=== PATIENT | male | born 1985 | race African-American/Black ===

== ENCOUNTER 2024-04-05 19:10 | Emergency (ER) | payer OTHER ==
[2024-04-05] MEDS ORDERED: diphenhydrAMINE 50 MG/ML VIAL ONE (19:31)
[2024-04-05] MEDS ORDERED: Metoclopramide HCl 10 MG (2 mL) VIAL ONE (19:32)
[2024-04-05 20:02] LABS: #Eosinphils 0.1 thou/uL (0.0-0.7); #Lymphocytes 1.1 thou/uL (1.20-3.40); #Monocytes 0.5 thou/uL (0.11-0.59); #Neutrophils 5.2 thou/uL (1.40-6.50); %Basophils 0.7 % (0.0-1.0); %Eosinophils 1.1 % (0.0-10.0); %Lymphocytes 15.5 % (21.0-51.0); %Monocytes 6.9 % (0.0-10.0); %Neutrophils 75.9 % (42.0-75.0); Hematocrit 38.7 % (42.0-52.0); Hemoglobin 12.7 g/dL (14.0-18.0); Mean Corpuscular HGB CONC 32.7 g/dL (32.0-36.0); Mean Corpuscular Hemoglobin 29.5 pg (27.0-31.0); Mean Corpuscular Volume 90.2 fl (78.0-98.0); Mean Platelet Volume 11.4 fL (7.4-10.4); Platelet Count 161 10x3/uL (130-400); RBC Distribution Width 12.7 % (11.5-14.5); Red Blood Cell (RBC) Count 4.29 mill/uL (4.70-6.10); White Blood Cell (WBC) Count 6.9 10x3/uL (4.8-10.8)
[2024-04-05 20:18] LABS: ALT (SGPT) 34 U/L (8-55); AST (SGOT) 21 U/L (5-34); Alkaline Phosphatase 40 U/L (40-110); Anion Gap 12 mmol/L (10-20); BUN (Urea Nitrogen) 14 mg/dL (8.9-20.6); Calc. Creatinine Clearance 0 mL/min (70-130); Calcium 8.8 mg/dL (7.8-10.44); Carbon Dioxide 24 mmol/L (22-29); Chloride 109 mmol/L (98-107); Estimated GFR 79; Globulin 2.5 g/dL (2.4-3.5); Glucose 88 mg/dL (70-105); Lipase 24 U/L (8-78); Potassium 3.9 mmol/L (3.5-5.1); Protein, Total 6.5 g/dL (6.0-8.3); Sodium 141 mmol/L (136-145)
== END 2024-04-05 21:03 | disposition home or self-care (01) ==
LOC: NAV ERS 19:10
DX: T67.5XXA Heat exhaustion, unspecified, initial encounter (principal); R51.9 Headache, unspecified
CPT/HCPCS: 36415; 71045; 80053; 83690; 85025; 96361; 96374; 96375; J1200; J2765